=== PATIENT | female | born 1935 | race Caucasian/White ===

== ENCOUNTER 2017-09-22 06:42 | Outpatient (CLI) | payer OTHER | END 2017-09-22 06:52 | disposition home or self-care (01) | LOC: LAB 06:42 | DX: E03.8 Other specified hypothyroidism (principal); E78.2 Mixed hyperlipidemia ==

== ENCOUNTER → 2017-09-25 | Outpatient (CLI) | payer OTHER | END | disposition home or self-care (01) | LOC: SONOGRAMA 08:34 | DX: E04.1 Nontoxic single thyroid nodule (principal); E03.8 Other specified hypothyroidism ==

== ENCOUNTER 2017-12-15 08:04 | Outpatient (CLI) | payer OTHER ==
[~2017-12-15] VITALS: Ht 121.9 cm; Wt 58.1 kg
== END 2017-12-15 08:20 | disposition home or self-care (01) ==
LOC: OFIC 805 08:04
DX: J31.2 Chronic pharyngitis (principal); K21.9 Gastro-esophageal reflux disease without esophagitis; J34.2 Deviated nasal septum; R49.0 Dysphonia

== ENCOUNTER → 2018-01-18 | Outpatient (CLI) | payer OTHER | END | disposition home or self-care (01) | LOC: SONOGRAMA 07:28 | DX: E04.1 Nontoxic single thyroid nodule (principal) ==

== ENCOUNTER → 2019-02-05 07:26 | Outpatient (CLI) | payer OTHER | END | disposition home or self-care (01) | LOC: LAB 07:26 | DX: E03.8 Other specified hypothyroidism (principal); E78.2 Mixed hyperlipidemia; E73.8 Other lactose intolerance; E11.9 Type 2 diabetes mellitus without complications ==

== ENCOUNTER 2021-01-17 11:10 | Emergency (ER) | payer OTHER ==
[~2021-01-17] VITALS: Ht 152.4 cm; Wt 49.9 kg
== END 2021-01-17 13:50 | disposition home or self-care (01) ==
LOC: ER 11:10
DX: S00.81XA Abrasion of other part of head, initial encounter (principal); W18.39XA Other fall on same level, initial encounter; Y93.89 Activity, other specified; Y92.098 Other place in other non-institutional residence as the place of occurrence of the external cause; Y99.8 Other external cause status; R42 Dizziness and giddiness

== ENCOUNTER 2021-06-08 08:43 | Outpatient (CLI) | payer OTHER | END 2021-06-08 08:45 | disposition home or self-care (01) | LOC: NUCLEAR 08:43 | PROVIDERS: ATTEND Internal Medicine Cardiovascular Disease | DX: I11.9 Hypertensive heart disease without heart failure (principal) ==

== ENCOUNTER 2021-06-29 13:02 | Emergency (ER) | payer OTHER ==
[~2021-06-29] VITALS: Ht 152.4 cm; Wt 57.2 kg
== END 2021-06-29 17:36 | disposition home or self-care (01) ==
LOC: ER 13:02
DX: M54.59 Other low back pain (principal); S32.020A Wedge compression fracture of second lumbar vertebra, initial encounter for closed fracture; W18.30XA Fall on same level, unspecified, initial encounter; Y93.9 Activity, unspecified; Y92.9 Unspecified place or not applicable; Y99.9 Unspecified external cause status

== ENCOUNTER 2021-07-13 13:17 | Outpatient (CLI) | payer OTHER | END 2021-07-13 13:25 | disposition home or self-care (01) | LOC: RAD 13:17 | PROVIDERS: ATTEND Physical Medicine & Rehabilitation | DX: M54.6 Pain in thoracic spine (principal); M54.59 Other low back pain ==

== ENCOUNTER 2021-09-29 08:50 | Emergency (ER) | payer OTHER ==
[~2021-09-29] VITALS: Ht 149.9 cm; Wt 54.4 kg
== END 2021-09-29 11:24 | disposition home or self-care (01) ==
LOC: ER 08:50
DX: R42 Dizziness and giddiness (principal); Z88.2 Allergy status to sulfonamides

== ENCOUNTER 2023-06-06 11:54 | Emergency (ER) | payer OTHER ==
[~2023-06-06] VITALS: Ht 152.4 cm; Wt 54.4 kg
[2023-06-06] MEDS ORDERED: MECLIZINE HCL 25 MG TABLET PO STA (13:13)
[2023-06-06] MEDS ORDERED: DEXAMETHASONE SODIUM PHOSPHATE 4 MG/ML VIAL IV STA (13:14)
[2023-06-06 13:39] LABS: HEMOGLOBIN 13.4 g/dL (12.0-15.00); MEAN CORPUSCULAR HEMOGLOBIN 32.3 pg (27.00-32.0); MEAN CORPUSCULAR HGB CONC 34.4 g/dl (32.0-36.0); PLATELET COUNT 234 K/uL (150-450); RED BLOOD COUNT 4.15 M/uL (4.00-6.00); RED CELL DISTRIBUTION WIDTH 13.4 % (11.5-14.5)
[2023-06-06 13:59] LABS: CALCIUM 9.3 mg/dL (8.5-10.1); CREATININE SERUM 0.75 mg/dL (0.55-1.02); GFR 73.27; POTASSIUM 3.54 mEq/L (3.5-5.1)
[2023-06-06] MEDS ORDERED: CLOPIDOGREL BISULFATE 75 MG TABLET PO STA (15:29)
== END 2023-06-06 16:09 | disposition home or self-care (01) ==
LOC: ER 11:54
PROVIDERS: General Practice
DX: I73.9 Peripheral vascular disease, unspecified (principal); R42 Dizziness and giddiness; R53.81 Other malaise; Z88.2 Allergy status to sulfonamides
CPT/HCPCS: 36415; 70450; 93005; 96365; 99284; J1100